=== PATIENT | male | born 2000 | race Caucasian/White ===

== ENCOUNTER 2018-05-11 22:56 | Emergency (ER) | payer SELFPAY ==
[~2018-05-11] VITALS: Ht 177.8 cm; Wt 96.0 kg
[2018-05-12] MEDS ORDERED: TETANUS, DIPHTHERIA, PERTUSSIS VAC/PF 0.5ML (>7YR OLD) IM ONE (02:45)
[2018-05-12] MEDS ORDERED: BACITRACIN ZINC OINT UDPKT TOP ONE (02:45)
[2018-05-12 03:54] VITALS: BP 112/64
== END 2018-05-12 03:56 | disposition home or self-care (01) ==
LOC: EDSEX 22:56 → ER 22:56
DX: S90.811A Abrasion, right foot, initial encounter (principal); S91.331A Puncture wound without foreign body, right foot, initial encounter; W22.8XXA Striking against or struck by other objects, initial encounter; Y93.89 Activity, other specified; Y92.89 Other specified places as the place of occurrence of the external cause; Y99.8 Other external cause status
CPT/HCPCS: 90471; 90715; 99283